=== PATIENT | female | born 2000 | race American Indian/Alaskan Native ===

== ENCOUNTER 2020-04-23 14:55 | Inpatient (IN) | payer OTHER ==
[~2020-04-23] VITALS: Ht 170.2 cm; Wt 68.5 kg
[~2020-04-23 14:55] MED LIST: PRENATAL DHA200 MG PO
[2020-05-08] MEDS ORDERED: PRENATAL TABLE1 EAC1 PO (04:36)
== END 2020-05-10 15:53 | DRG 807 ==
LOC: LDR 05-08 04:07 → OB/GYN 05-08 13:44
PROVIDERS: ADMIT Obstetrics & Gynecology; ATTEND Obstetrics & Gynecology
PROC: 10E0XZZ Delivery of Products of Conception, External Approach (ICD-10-PCS; principal; 2020-05-08)
PROC: 4A0HXFZ Measurement of Products of Conception, Cardiac Rhythm, External Approach (ICD-10-PCS; 2020-05-08)
DX: O80 Encounter for full-term uncomplicated delivery (principal); Z37.0 Single live birth; Z3A.39 39 weeks gestation of pregnancy